=== PATIENT | male | born 1955 | race Caucasian/White ===

== ENCOUNTER 2020-08-11 14:00 | Inpatient (IN) | payer MEDICAID ==
[~2020-08-11] VITALS: Ht 180.3 cm; Wt 89.6 kg
--- NOTE | 2020-08-11 14:00 | NUR ---
PT BIB C/O HEADACHE AND GEN WEAKNESS. PT IS AAOX2, NOT IN RESPIRATORY DISTRESS, HOOKED TO DEVELOPMENT PROFESSIONAL, KEPT RESTED AND COMFORTABLE. WILL CONTINUE TO MONITOR.
[2020-08-11] MEDS ORDERED: SITA50TA PO (14:49)
[2020-08-11] MEDS ORDERED: METF-442 PO (14:49)
[2020-08-11] MEDS ORDERED: ATOR20TA PO (14:49)
--- NOTE | 2020-08-11 15:00 | NUR ---
AT BEDSIDE FOR EVAL.
--- NOTE | 2020-08-11 15:05 | NUR ---
PT IV LINE ESTABLISHED BLOOD DRAWN AND SENT TO LAB.
[2020-08-11 15:24] LABS: BASOPHILS % (AUTO) 0.4 % (0.0-2.0); EOSINOPHILS % (AUTO) 1.7 % (0.0-6.0); HEMATOCRIT 43 % (39-51); HEMOGLOBIN 14.3 g/dL (13.5-17.5); LYMPHOCYTES # (AUTO) 3.3 /CMM (0.8-4.8); MEAN CORPUSCULAR HGB CONC 33 g/dl (31.0-36.0); MEAN CORPUSCULAR VOLUME 92 fL (80-96); MONOCYTES # (AUTO) 0.9 /CMM (0.1-1.30); MONOCYTES % (AUTO) 9.4 % (2.0-12.0); NEUTROPHILS # (AUTO) 5.1 /CMM (1.8-8.9); NEUTROPHILS % (AUTO) 53.5 % (43.0-81.0); PLATELET COUNT (AUTO) 285 /CMM (150-450); RED BLOOD CELL COUNT(AUTO) 4.71 MIL/uL (4.5-6.0); WHITE BLOOD COUNT (AUTO) 9.5 K/uL (4.3-11.0)
--- NOTE | 2020-08-11 15:30 | NUR ---
URINE SPECIMEN COLLECTED AND SENT TO LAB.
--- NOTE | 2020-08-11 15:30 | NUR ---
COMPRESSOR STATION CHIEF ENGINEER AT BEDSIDE FOR XRAY.
[2020-08-11 15:37] LABS: CALCIUM, SERUM 9.5 mg/dL (8.5-10.1); CARBON DIOXIDE 30 mmol/L (21-32); CHLORIDE 104 mmol/L (98-107); GLUCOSE 110 mg/dL (74-106); POTASSIUM 3.8 mmol/L (3.5-5.1); SODIUM SERUM 142 mmol/L (136-145); UREA NITROGEN, BLOOD 18 mg/dL (7-18)
[2020-08-11 15:49] LABS: SERUM AMMONIA 5 umol/L (11-32)
[2020-08-11] MEDS ORDERED: IOHEXOL-350 100 ML VIAL IV ONE (15:49)
[2020-08-11] MEDS ORDERED: IV NS 0.9% 250 ML IV ONE (15:49)
[2020-08-11] MEDS ORDERED: CT SWABBABLE VALVE TRANS SET 1 EA INFUS.SET MC ONE (15:49)
[2020-08-11 15:50] LABS: ALANINE AMINOTRANSFERASE 27 U/L (12-78); ALCOHOL, BLOOD 4 mg/dL (0-0); ALKALINE PHOSPHATASE 60 U/L (46-116); ASPARTATE AMINOTRANSFERASE 15 U/L (15-37); BILIRUBIN,DIRECT 0.1 mg/dL (0.0-0.2); BILIRUBIN,TOTAL 0.3 mg/dL (0.2-1.0); TOTAL PROTEIN, SERUM 7.9 g/dL (6.4-8.2)
[2020-08-11 17:25] LABS: THYROID STIMULATING HORMONE 0.849 uIU/mL (0.358-3.74)
[2020-08-11 17:47] LABS: BILIRUBIN,URINE NEGATIVE (NEGATIVE); BLOOD, URINE NEGATIVE Ery/uL (NEGATIVE); COLOR,URINE YELLOW (YELLOW); LEUKOCYTE ESTERASE ,URINE NEGATIVE (NEGATIVE); NITRITE, URINE NEGATIVE (NEGATIVE); PH,URINE 5.5 (5.0-8.0); PROTEIN,URINE NEGATIVE (NEGATIVE); UGLUCOSE NEGATIVE (NEGATIVE); UROBILINOGEN,URINE 0.2 EU/dL (0.2)
--- NOTE | 2020-08-11 20:41 | NUR ---
DAUGHTER, AUSTIN: [phone]
--- NOTE | 2020-08-11 20:57 | NUR ---
DR. VIERA SPEAKING WITH DR. SOLIMAN REGARDING ADMISSION
--- NOTE | 2020-08-11 20:58 | NUR ---
CALLED NURSING SUP FOR BED
[2020-08-11 23:50] VITALS: BP 142/67
--- NOTE | 2020-08-11 23:53 | NUR ---
REPORT GIVEN TO CASPER FOR MANDY; PT WILL TRANSPORTED TO 3RD FLOOR
--- NOTE | 2020-08-12 | NUR ---
tele occup ther initial notes admit pt from ER via gurney accompany by ER nurse and Tech.Dx of Stroke. Pt is alert oriented , ambulatory, no signs of any respiratory distress noted,able to give information and answered all my question. St[facility] Nursing assessment done as well as educate pt regarding stroke and pt understood well, Applied tele monitor on his chest wall and educate pt the purpose of it. kept him warm and comfortable at all times. on semi- fowlers position with side rails x2 up. orient him how to used the call light system and encourage him to use if he needs some help or needs the nurse.Sinus rhythm on tele monitor. will continue monitoring.place call light at reach.
[2020-08-12] MEDS ORDERED: *INSULIN REGULAR(HUMULIN R)HUM 100 UNIT/ML VIAL SQ PRN (01:00)
[2020-08-12] MEDS ORDERED: DEXTROSE 50%-WATER 50 ML DISP.SYRIN IV PRN (01:00)
[2020-08-12 04:00] VITALS: BP 132/75
[2020-08-12 06:06] LABS: BASOPHILS % (AUTO) 0.4 % (0.0-2.0); EOSINOPHILS % (AUTO) 2.6 % (0.0-6.0); HEMATOCRIT 40 % (39-51); HEMOGLOBIN 13.5 g/dL (13.5-17.5); LYMPHOCYTES # (AUTO) 3.5 /CMM (0.8-4.8); LYMPHOCYTES % (AUTO) 40.8 % (20.0-44.0); MEAN CORPUSCULAR HGB CONC 34 g/dl (31.0-36.0); MEAN CORPUSCULAR VOLUME 90 fL (80-96); MONOCYTES # (AUTO) 0.8 /CMM (0.1-1.30); MONOCYTES % (AUTO) 9.3 % (2.0-12.0); NEUTROPHILS % (AUTO) 46.9 % (43.0-81.0); PLATELET COUNT (AUTO) 257 /CMM (150-450); WHITE BLOOD COUNT (AUTO) 8.5 K/uL (4.3-11.0)
[2020-08-12 06:11] LABS: ALBUMIN 3.3 g/dL (3.4-5.0); BILIRUBIN,TOTAL 0.4 mg/dL (0.2-1.0); CALCIUM, SERUM 8.9 mg/dL (8.5-10.1); CREATININE 0.9 mg/dL (0.6-1.3); POTASSIUM 3.9 mmol/L (3.5-5.1); TOTAL PROTEIN, SERUM 6.7 g/dL (6.4-8.2)
[2020-08-12] MEDS: BLOOD SUGAR DIAGNOSTIC 1 EACH STRIP VI SCH ×2 (06:22→12:27)
[2020-08-12] MEDS: INSULIN REGULAR, HUMAN 100 UNIT/ML 3 ML VIAL SQ PRN ×2 (06:22→12:28)
[2020-08-12 06:24] LABS: THYROID STIMULATING HORMONE 0.878 uIU/mL (0.358-3.74)
[2020-08-12] MEDS ORDERED: ACETAMINOPHEN 325 MG TABLET PO PRN (06:30)
--- NOTE | 2020-08-12 07:27 | NUR ---
tele stunt man closing notes pt awake and alert watching tv at this time. denies any pain or any discomfort. Slept well since admission. no signs of any stroke noted at this time. blood sugar 121, no insulin due at this time. no signs of hypo glycemia noted. Tele SR per monitor. endorse to am nurse Dai for continuity of care. place call light at reach.
[2020-08-12 08:00] VITALS: BP 119/67
[2020-08-12] MEDS ORDERED: ASPIRIN EC 81 MG TABLET.DR PO SCH (09:00)
[2020-08-12] MEDS ORDERED: CLOPIDOGREL BISULFATE 75 MG TABLET PO SCH (09:00)
[2020-08-12] MEDS ORDERED: METFORMIN 500 MG TABLET PO SCH (09:00)
[2020-08-12] MEDS ORDERED: LINAGLIPTIN 5 MG TABLET PO SCH (09:00)
[2020-08-12] MEDS ORDERED: ASPI-1420 PO (09:08)
[2020-08-12] MEDS ORDERED: CLOP75TA15 PO (09:08)
--- NOTE | 2020-08-12 12:28 | NUR ---
RN NOTE NON-ADMIN INSULIN PER PROTOCOL. BS 130.
--- NOTE | 2020-08-12 13:35 | NUR ---
Patient is a 65 year-old male. Patient is primarily Palauan speaking but can understand Indonesian. Patient reported that on 08/11 his family ( and daughter) noticed that the patient's speech was slurred and slow. Patient reports that he was also feeling numbness on his left arm and reported that his head was hurting. Patient reported to this SW that he is feeling better today and would like to return home. 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 Patient reports that he is independent in ADL's and IADL's and during this SW assessment PT also assessed the patient. SW conducted PHQ9 per stroke protocol. Patient scored a 2 on the PHQ9. This SW provided stroke empowerment resources to this patient. SW remains available for all needs regarding this patient.
--- NOTE | 2020-08-12 15:02 | NUR ---
WARP STARTER NOTE Patient is medically cleared for discharge. A/O x4, showing no signs of acute distress or SOB, stable on RA. Patient is ambulatory with steady gait. Able to swallow without aspiration. Cleared by PT/OT/ST/SS. Stroke interventions completed, patient stroke satisfaction survey completed and faxed to continuous improvement coordinator. All patient needs met, all due medications given, patient kept clean and dry throughout shift. DC instructions provided and patient verbalized understanding. IV line removed, ID band removed. skin remains intact. Patient DC to home picked up by daughter in private car. Charge nurse aware.
--- NOTE | 2020-08-12 15:03 | NUR ---
Patient lives locally with family. He is ambulatory and independent with adl's. Denies any dc planning needs.Advised to follow up with his pcp in 3-7 days. Addendum: 08/12/20 at 2048 by SARAHY CARRASCO RN Amended: Links added.
[2020-08-12] MEDS ORDERED: ZOLPIDEM TARTRATE 5 MG TABLET PO PRN (22:00)
[2020-08-12] MEDS ORDERED: ATORVASTATIN 10 MG TABLET PO SCH (22:00)
== END 2020-08-12 15:00 | disposition home or self-care (01) | DRG 45 ==
LOC: ER 14:05 → TELE 23:18
PROVIDERS: ADMIT Internal Medicine; ATTEND Internal Medicine
DX: I63.81 Other cerebral infarction due to occlusion or stenosis of small artery (principal); E11.9 Type 2 diabetes mellitus without complications; I10 Essential (primary) hypertension; E78.5 Hyperlipidemia, unspecified; Z86.73 Personal history of transient ischemic attack (TIA), and cerebral infarction without residual deficits; R40.2362 Coma scale, best motor response, obeys commands, at arrival to emergency department; R40.2142 Coma scale, eyes open, spontaneous, at arrival to emergency department; R40.2252 Coma scale, best verbal response, oriented, at arrival to emergency department; R29.700 NIHSS score 0; Z79.84 Long term (current) use of oral hypoglycemic drugs
CPT/HCPCS: 36415; 70496-TC; 70498-TC; 71045-TC; 80048-TC; 80053-TC; 80061-TC; 80076-TC; 81001; 82140-TC; 82962-TC; 84443-TC; 84484-TC; 85025-TC; 85730-TC; 87081-TC; 92526; 92611-TC; 93307-TC; 97110-TC; 97116-TC; 97530-TC; C9803; G0378; G0480; J1815; J7050; Q9967